=== PATIENT | male | born 1965 ===

== ENCOUNTER 2017-12-23 11:44 | Emergency (ER) | payer MEDICAID ==
[2017-12-23 12:03] VITALS: BMI 30.4
[2017-12-23 12:05] VITALS: BP 115/76; PULSE 79; RESP 18; TEMP 98; O2SAT 97
--- NOTE | 2017-12-23 12:52 | C.PDOC ---
History Of Present Illness 52 year old male, with a PMHx of asthma, presents to the emergency department complaining of a sore throat for the past 3 days, associated with a subjective fever. The patient states he tried over the counter medications but without relief. He denies any nausea, vomiting, headache, or weaknesses. Time Seen by Provider: 12/23/17 12:10 Chief Complaint (Nursing): ENT Problem History Per: Patient History/Exam Limitations: None Onset/Duration Of Symptoms: Days Current Symptoms Are (Timing): Still Present Past Medical History Reviewed: Historical Data, Nursing Documentation, Vital Signs Vital Signs: Last Vital Signs Temp 98 F 12/23/17 12:03 Pulse 79 12/23/17 12:03 Resp 18 12/23/17 12:03 BP 115/76 12/23/17 12:03 Pulse Ox 97 12/23/17 18:16 - Medical History PMH: Asthma Family History: States: No Known Family Hx - Social History Hx Alcohol Use: No Hx Substance Use: No - Immunization History Hx Tetanus Toxoid Vaccination: No Hx Influenza Vaccination: No Hx Pneumococcal Vaccination: No Review Of Systems Except As Marked, All Systems Reviewed And Found Negative. Constitutional: Positive for: Fever (subjective). Negative for: Chills ENT: Positive for: Throat Pain (sore throat) Cardiovascular: Negative for: Chest Pain Respiratory: Negative for: Shortness of Breath Gastrointestinal: Negative for: Nausea, Vomiting Neurological: Negative for: Weakness, Numbness, Headache Physical Exam - Physical Exam Appears: Well, Non-toxic, No Acute Distress Skin: Normal Color, Warm, Dry Head: Atraumatic, Normacephalic Eye(s): bilateral: Normal Inspection, EOMI Nose: Normal Oral Mucosa: Moist Throat: Erythema (to pharynx), No Exudate, No Drooling Neck: Normal ROM, Supple Lymphatic: Adenopathy Chest: Symmetrical Cardiovascular: Rhythm Regular Respiratory: Normal Breath Sounds, No Rales, No Rhonchi, No Wheezing Gastrointestinal/Abdominal: Soft, No Tenderness Extremity: Normal ROM Neurological/Psych: Oriented x3, Normal Speech, Other (No focal deficits) ED Course And Treatment O2 Sat by Pulse Oximetry: 97 (RA) Pulse Ox Interpretation: Normal Progress Note: Discussed signs and symptoms of concern. Instructed to follow up with PMD in 1-2 days. Disposition - Disposition Disposition: HOME/ ROUTINE Disposition Time: 12:49 Condition: STABLE Additional Instructions: Follow up with your doctor in 1-2 days. Return to ER if symptoms persist or worsen. Prescriptions: Amoxicillin 875 mg PO BID #14 tablet Mag&Al/Simet/Diphen/Lido [First Magic Mouthwash] 5 ml MM Q6 #1 kit Instructions: Sore Throat, Adult (DC) Forms: [employer] (Mozambican) - Clinical Impression Clinical Impression: Pharyngitis - PA / TRAPPER BIRD / Resident Statement MD/DO has reviewed & agrees with the documentation as recorded. - Scribe Statement The provider has reviewed the documentation as recorded by the Scribe All medical record entries made by the Scribe were at my direction and personally dictated by me. I have reviewed the chart and agree that the record accurately reflects my personal performance of the history, physical exam, medical decision making, and the department course for this patient. I have also personally directed, reviewed, and agree with the discharge instructions and disposition.
== END 2017-12-23 13:02 | disposition home or self-care (01) ==
LOC: C.ER 11:44
DX: J02.9 Acute pharyngitis, unspecified (principal)

== ENCOUNTER 2018-03-24 20:45 | Emergency (ER) | payer MEDICAID ==
[2018-03-24 20:46] VITALS: BMI 30.4
[2018-03-24 21:04] VITALS: BP 119/79; PULSE 78; RESP 18; TEMP 97.6; O2SAT 100
--- NOTE | 2018-03-24 22:15 | C.PDOC ---
History Of Present Illness 53-year-old male presents to the ED for evaluation of sore throat, itchy throat, and dry cough which began a few hours prior to arrival. Patient states that he has a history of frequent throat infections and wants to be evaluated for antibiotics. Patient denies fever, chills, shortness of breath. Time Seen by Provider: 03/24/18 21:18 Chief Complaint (Nursing): ENT Problem History Per: Patient History/Exam Limitations: no limitations Onset/Duration Of Symptoms: Hrs Current Symptoms Are (Timing): Still Present Location Of Pain: Throat Associated Symptoms: Cough. denies: Fever, Chills Additional History Per: Patient Past Medical History Reviewed: Historical Data, Nursing Documentation, Vital Signs Vital Signs: Last Vital Signs Temp 97.6 F 03/24/18 20:54 Pulse 78 03/24/18 20:54 Resp 18 03/24/18 20:54 BP 119/79 03/24/18 20:54 Pulse Ox 100 03/24/18 20:54 - Medical History PMH: Asthma, Fibromyalgia, Osteoporosis, Rheumatoid Arthritis Surgical History: No Surg Hx Family History: States: Unknown Family Hx - Social History Hx Alcohol Use: No Hx Substance Use: No - Immunization History Hx Tetanus Toxoid Vaccination: No Hx Influenza Vaccination: No Hx Pneumococcal Vaccination: No Review Of Systems Constitutional: Negative for: Fever, Chills ENT: Positive for: Throat Pain Respiratory: Positive for: Cough. Negative for: Shortness of Breath, Sputum Physical Exam - Physical Exam Appears: Non-toxic, No Acute Distress Skin: Normal Color, Warm, Dry Head: Atraumatic, Normacephalic Eye(s): bilateral: Normal Inspection Ear(s): Bilateral: Normal Nose: Normal, No Discharge Oral Mucosa: Moist Throat: Normal, No Erythema, No Exudate, No Drooling Neck: Normal ROM, Supple Lymphatic: No Adenopathy Chest: Symmetrical, No Deformity, No Tenderness Cardiovascular: Rhythm Regular Respiratory: Normal Breath Sounds Neurological/Psych: Normal Speech, Normal Cognition ED Course And Treatment O2 Sat by Pulse Oximetry: 100 (on RA) Pulse Ox Interpretation: Normal Progress Note: Rapid strep test was ordered and results were negative. On reassessment, patient is resting comfortably, remains afebrile, and is stable for discharge. Patient is advised to follow up with his PMD within 1 to 2 days for further evaluation. He is advised to return to the ED if his symptoms persist or worsen. Disposition Counseled Patient/Family Regarding: Diagnosis, Need For Followup, Rx Given - Disposition Referrals: [facility] [Outside] Disposition: HOME/ ROUTINE Disposition Time: 22:12 Condition: STABLE Additional Instructions: Take medications as directed Use cough drops Gargle with warm salt water Return to ER if worse Prescriptions: Benzonatate [Tessalon Perles] 200 mg PO TID #14 sgl Cetirizine HCl [Zyrtec] 10 mg PO DAILY #14 capsule Instructions: Viral Upper Respiratory Infection, Adult (DC) Forms: [employer] (Luxembourgish) - Clinical Impression Clinical Impression: Upper respiratory infection - PA / INSTALLATION ENGINEER / Resident Statement MD/DO has reviewed & agrees with the documentation as recorded. - Scribe Statement The provider has reviewed the documentation as recorded by the Scribe (Amy Ford) All medical record entries made by the Scribe were at my direction and personally dictated by me. I have reviewed the chart and agree that the record accurately reflects my personal performance of the history, physical exam, medical decision making, and the department course for this patient. I have also personally directed, reviewed, and agree with the discharge instructions and disposition.
== END 2018-03-24 22:22 | disposition home or self-care (01) ==
LOC: C.ER 20:45
DX: J06.9 Acute upper respiratory infection, unspecified (principal)

== ENCOUNTER 2018-03-26 08:58 | Emergency (ER) | payer MEDICAID ==
[2018-03-26 08:59] VITALS: BMI 30.4
[2018-03-26 09:06] VITALS: RESP 20
--- NOTE | 2018-03-26 09:22 | C.PDOC ---
History Of Present Illness 53 yr old male w/ hx of Asthma, Fibromyalgia, Osteoporosis, Rheumatoid Arthritis p/w sore throat. Pt notes sore throat started 4d ago. He notes some change in phonation but no difficulty swallowing. Pt also notes cough, but no chest pain or sob. Does not feel like his asthma exacerbation. No abdominal pain. No headache, nausea or vomiting. No body aches. No sinus pain. He notes nasal congestion. Was here in ED 2d prior and dx w/ viral URI, has been taking cough meds with mild improvement but noted coming in today because he was concerned he was not improving fully. No other complaints. Time Seen by Provider: 03/26/18 09:22 Chief Complaint (Nursing): ENT Problem Past Medical History Vital Signs: Last Vital Signs Temp 97.9 F 03/26/18 09:03 Pulse 75 03/26/18 09:03 Resp 20 03/26/18 09:03 BP 119/73 03/26/18 09:03 Pulse Ox 97 03/26/18 09:03 - Medical History PMH: Asthma, Fibromyalgia, Osteoporosis, Rheumatoid Arthritis Family History: States: Unknown Family Hx - Social History Hx Alcohol Use: No Hx Substance Use: No - Immunization History Hx Tetanus Toxoid Vaccination: No Hx Influenza Vaccination: Yes Hx Pneumococcal Vaccination: No Review Of Systems Constitutional: Negative for: Fever, Chills, Sweats, Weakness Eyes: Negative for: Pain ENT: Positive for: Nose Discharge, Throat Pain. Negative for: Ear Pain, Ear Discharge, Nose Pain, Nose Congestion, Mouth Pain, Mouth Swelling, Throat Swelling Cardiovascular: Negative for: Chest Pain, Palpitations, Orthopnea Respiratory: Positive for: Cough. Negative for: Shortness of Breath, SOB with Excertion, Pleuritic Pain Gastrointestinal: Negative for: Nausea, Vomiting, Abdominal Pain, Constipation, Melena, Hematochezia Genitourinary: Negative for: Dysuria, Frequency, Hematuria Musculoskeletal: Negative for: Neck Pain, Shoulder Pain, Back Pain Skin: Negative for: Rash, Lesions Neurological: Negative for: Weakness, Numbness Psych: Negative for: Anxiety Physical Exam - Physical Exam Appears: Well, Non-toxic, No Acute Distress Skin: Normal Color, Warm, Dry Head: Atraumatic, Normacephalic Eye(s): bilateral: Normal Inspection, PERRL, EOMI Ear(s): Bilateral: Normal Nose: Normal, No Flaring, No Discharge Oral Mucosa: Moist Tongue: Normal Appearing, No Swelling, No Lesions Lips: Normal Appearing Gingiva: Normal Appearing Throat: Normal, Erythema (mild), No Exudate, No Drooling, No Mass Neck: Normal, Normal ROM, Supple, Other (no meningeal signs) Lymphatic: Adenopathy (anterior L cervical chain x1), Other (No posterior lymphadenopathy) Chest: Symmetrical Cardiovascular: Rhythm Regular Respiratory: Normal Breath Sounds Gastrointestinal/Abdominal: Normal Exam, Soft, No Tenderness, No Distention, No Guarding Back: Normal Inspection, No CVA Tenderness Extremity: Bilateral: Atraumatic Neurological/Psych: Oriented x3, Normal Speech, Normal Cognition Gait: Steady ED Course And Treatment O2 Sat by Pulse Oximetry: 97 (RA) Pulse Ox Interpretation: Normal Medical Decision Making Medical Decision Makin yr old male w/ hx of Asthma, Fibromyalgia, Osteoporosis, Rheumatoid Arthritis p/w sore throat, cough x4d. No posterior lymphadenopathy or meningeal signs. Mild cough. No GONZALEZ. No fever recently. No chest pain or sob. Well appea ring on exam, without dysphagia, odynophagia. Mild change in phonation but no hoit potato like voice. Uvula midline. Likely pharyngitis. No other complaints. Pending labs Plan: Tylenol/Codeine 1040 Pt in NAD pain improved, however given recurrent visit, mild improvement will seek ABX for outpt rx and f/u for pharyngitis. pt agreeable Disposition - Disposition Referrals: [facility] [Outside] [facility] [Outside] Disposition: HOME/ ROUTINE Disposition Time: 10:41 Condition: GOOD Additional Instructions: [place], thank you for letting us take care of you today. Your provider was Mendez Verde and you were treated for SORE THROAT. The emergency medical care you received today was directed at your acute symptoms. If you were prescribed any medication, please fill it and take as directed. It may take several days for your symptoms to resolve. Return to the Emergency Department if your symptoms worsen, do not improve, or if you have any other problems. Please contact your doctor or call one of the physicians/clinics you have been referred to that are listed on the Patient Visit Information form that is included in your discharge packet. Bring any paperwork you were given at discharge with you along with any medications you are taking to your follow up visit. Our treatment cannot replace ongoing medical care by a primary care provider outside of the emergency department. Thank you for allowing the [facility] team to be part of your care today. If you had an X-Ray or CT scan: A Radiologist will review the ED reading if any change in treatment is needed we will contact you. If you had a blood, urine, or wound culture: It will take several days for the results, if any change in treatment is needed we will contact you. If you had an STI test: It will take 48 hours for the results. Please call after 1 week if you have not heard back. Prescriptions: Amoxicillin 875 mg PO BID 7 Days #14 tablet Instructions: Sore Throat in Adults Forms: [employer] (Urdu) - Clinical Impression Clinical Impression: Pharyngitis
[2018-03-26] MEDS ORDERED: Acetaminophen-Codeine 300/30 mg Tab PO STA (09:34)
[2018-03-26] MEDS ORDERED: Acetaminophen-Codeine 300/30 mg Tab PO ONE (09:45)
[2018-03-26 10:39] VITALS: BP 109/73; PULSE 68; TEMP 97.5
[2018-03-26 10:41] VITALS: O2SAT 97
== END 2018-03-26 10:46 | disposition home or self-care (01) ==
LOC: C.ER 08:58
DX: J02.9 Acute pharyngitis, unspecified (principal)